=== PATIENT | female | born 1980 | race Caucasian/White ===

== ENCOUNTER 2018-10-20 13:28 | Emergency (ER) | payer BC ==
--- NOTE | 2018-10-20 13:58 | ER Document Report ---
ED Medical Screen (RME) - General Chief Complaint: Syncope Stated Complaint: SKIN PROBLEM Time Seen by Provider: 10/20/18 13:42 TRAVEL OUTSIDE OF THE [place] 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 She notes that she is concerned that there is scabies living in her skin for a long period of time. Also is concerned that this could represent some other unrecognized chronic infection. Has seen a jewel gauger. Has seen infectious disease provider. She notes a history of rectal bleeding over the last several days. I have seen and evaluated this patient in rapid medical screening exam fashion. I have initiated a evaluation and workup, this patient will require further investigation evaluation and disposition determination by secondary provider. - Vital Signs Vital signs: Temp Pulse Resp BP Pulse Ox 98.3 F 105 H 18 130/91 H 97 10/20/18 13:33 10/20/18 13:33 10/20/18 13:33 10/20/18 13:33 10/20/18 13:33
[2018-10-20 14:35] LABS: ABSOLUTE BASOPHILS # (AUTO) 0.1 10^3/uL (0.0-0.2); ABSOLUTE EOSINOPHILS # (AUTO) 0.2 10^3/uL (0.0-0.6); ABSOLUTE LYMPHOCYTES (AUTO) 1.9 10^3/uL (0.5-4.7); ABSOLUTE MONOCYTES (AUTO) 0.6 10^3/uL (0.1-1.4); ABSOLUTE NEUT (AUTO) 7.8 10^3/uL (1.7-8.2); BASOPHILS % (AUTO) 0.5 % (0-2); EOSINOPHILS % (AUTO) 2.1 % (0-6); HEMATOCRIT 45.1 % (36.0-47.0); HEMOGLOBIN 15.4 g/dL (12.0-15.5); LYMPHOCYTES % (AUTO) 18.1 % (13-45); MEAN CORPUSCULAR HEMOGLOBIN 29.9 pg (27.0-33.4); MEAN CORPUSCULAR HGB CONC 34.1 g/dL (32.0-36.0); MEAN CORPUSCULAR VOLUME 88 fl (80-97); MONOCYTES % (AUTO) 5.9 % (3-13); PLATELET COUNT 393 10^3/uL (150-450); RED BLOOD COUNT 5.15 10^6/uL (3.72-5.28); RED CELL DISTRIBUTION WIDTH 13.2 % (11.5-14.0); SEGMENTED NEUTROPHILS % (AUTO) 73.4 % (42-78); TOTAL CELLS COUNTED % (AUTO) 100 %; WHITE BLOOD COUNT 10.6 10^3/uL (4.0-10.5)
[2018-10-20 14:46] LABS: URINE AMPHETAMINES SCREEN NEGATIVE; URINE BARBITURATES SCREEN NEGATIVE; URINE BENZODIAZEPINES SCREEN UNCONFIRMED POSITIVE; URINE COCAINE SCREEN NEGATIVE; URINE MARIJUANA (THC) SCREEN NEGATIVE; URINE METHADONE SCREEN NEGATIVE; URINE PHENCYCLIDINE SCREEN NEGATIVE
[2018-10-20 14:47] LABS: APPEARANCE,URINE SLIGHTLY-CLOUDY; BILIRUBIN,URINE NEGATIVE (NEGATIVE); COLOR,URINE YELLOW; GLUCOSE, URINE NEGATIVE (NEGATIVE); KETONES,URINE NEGATIVE (NEGATIVE); LEUKOCYTE ESTERASE,URINE NEGATIVE (NEGATIVE); NITRITE,URINE NEGATIVE (NEGATIVE); PROTEIN,URINE NEGATIVE (NEGATIVE); URINE SPECIFIC GRAVITY 1.018; UROBILINOGEN,URINE NEGATIVE mg/dL (<2.0)
[2018-10-20 15:05] LABS: ALANINE AMINOTRANSFERASE 18 U/L (9-52); ALBUMIN 4.9 g/dL (3.5-5.0); ALKALINE PHOSPHATASE 66 U/L (38-126); ANION GAP 10 (5-19); ASPARTATE AMINO TRANSFERASE 22 U/L (14-36); BILIRUBIN,DIRECT 0.2 mg/dL (0.0-0.4); BILIRUBIN,TOTAL 0.4 mg/dL (0.2-1.3); BLOOD UREA NITROGEN 11 mg/dL (7-20); CALCIUM 9.8 mg/dL (8.4-10.2); CARBON DIOXIDE 28 mmol/L (22-30); CHLORIDE 100 mmol/L (98-107); GLUCOSE 99 mg/dL (75-110); POTASSIUM 4.4 mmol/L (3.6-5.0); SODIUM 137.7 mmol/L (137-145); TOTAL PROTEIN 7.7 g/dL (6.3-8.2)
--- NOTE | 2018-10-20 16:45 | ER Document Report ---
ED General - General Chief Complaint: Syncope Stated Complaint: SKIN PROBLEM Time Seen by Provider: 10/20/18 13:42 Notes: Patient is a 37-year-old female presents to the emergency department complaining of a generalized rash. Patient states she has had a generalized rash to "my entire body" for over a year. Patient states she has been to an oncologist, electrical controls technician, meter reader, choke reamer, infectious disease doctor for "all my issues." Patient states she did have melanoma the posterior aspect of her left leg removed multiple years ago. Patient states the rash that she has had has been the same for over the last year, states it has not changed at all. States the meter reader and the choke reamer gave her no medications for treatment. Patient states "I am just tired of being sick." patient does state for the last 2 days she has had intermittent rectal bleeding upon passing stool. States she has a history of anemia and is worried that she is losing too much blood. Past medical history: Anemia, melanoma Medications: Effexor, Adderall, iron, Singulair Allergies: Sulfa Surgical history: Tubal ligation Patient denies cigarette smoking, denies illicit drug use, denies EtOH use. Patient denies IV drug use in the past or currently. TRAVEL OUTSIDE OF THE [place] IN LAST 30 DAYS: No - Related Data Allergies/Adverse Reactions: Sulfa (Sulfonamide Antibiotics) Allergy (Verified 10/20/18 13:29) Past Medical History - General Information source: Patient - Social History Smoking Status: Never Smoker Frequency of alcohol use: None Drug Abuse: None Family History: Reviewed & Not Pertinent Patient has suicidal ideation: No Patient has homicidal ideation: No Renal/ Medical History: Denies: Hx Peritoneal Dialysis Past Surgical History: Reports: Hx Tubal Ligation Review of Systems - Review of Systems Constitutional: No symptoms reported EENT: No symptoms reported Cardiovascular: No symptoms reported Respiratory: No symptoms reported Gastrointestinal: See HPI Genitourinary: No symptoms reported Female Genitourinary: No symptoms reported Musculoskeletal: No symptoms reported Skin: See HPI Hematologic/Lymphatic: See HPI Neurological/Psychological: No symptoms reported Physical Exam - Vital signs Vitals: Temp Pulse Resp BP Pulse Ox 98.3 F 105 H 18 130/91 H 97 10/20/18 13:33 10/20/18 13:33 10/20/18 13:33 10/20/18 13:33 10/20/18 13:33 - Notes Notes: GENERAL: Alert, interacts well. No acute distress. HEAD: Normocephalic, atraumatic. EYES: Pupils equal, round, and reactive to light. Extraocular movements intact. ENT: Oral mucosa moist, tongue midline. NECK: Full range of motion. Supple. Trachea midline. LUNGS: Clear to auscultation bilaterally, no wheezes, rales, or rhonchi. No respiratory distress. HEART: Regular rate and rhythm. No murmur ABDOMEN: Soft, non-tender. Non-distended. Bowel sounds present in all 4 quadrants. EXTREMITIES: Moves all 4 extremities spontaneously. No edema, normal radial and dorsalis pedis pulses bilaterally. No cyanosis. BACK: no cervical, thoracic, lumbar midline tenderness. No saddle anesthesia, normal distal neurovascular exam. NEUROLOGICAL: Alert and oriented x3. Normal speech. cranial nerves II through XII grossly intact PSYCH: flat affect, depressed mood. SKIN: Warm, dry, normal turgor. Pinpoint linear erythematous raised lesions noted to the labs of bilateral fingers. what appears to be an excoriated abrasion is noted in between patient's eyebrows. Well-healed scar from a melanoma removal noted to the posterior aspect of the patient's left lower extremity. Otherwise skin exam is unremarkable. Course - Re-evaluation Re-evalutation: 10/20/18 16:45 Patient had labs ordered by the [employer] provider in triage. [facility]PR is only run on Mondays, Wednesdays, Fridays. Patient's labs show a white count of 10.6. Otherwise are unremarkable. No signs of anemia, no signs of any flexion, no signs of urinary tract infection. Patient's guaiac stool was positive at bedside although upon physical exam there were external hemorrhoids noted. No obvious bleeding or melena noted in stool appearance. 10/20/18 16:47 Patient's urine did show signs of benzodiazepines, patient continues to deny any illicit drug use besides prescription Adderall. - Vital Signs Vital signs: Temp Pulse Resp BP Pulse Ox 98.3 F 105 H 18 130/91 H 97 10/20/18 13:33 10/20/18 13:33 10/20/18 13:33 10/20/18 13:33 10/20/18 13:33 - Laboratory Result Diagrams: 10/20/18 14:05 10/20/18 14:05 Laboratory results interpreted by me: 10/20/18 10/20/18 14:05 14:05 WBC 10.6 H Urine Ascorbic Acid 40 H Discharge - Discharge Clinical Impression: Scabies Hemorrhoids Qualifiers: Hemorrhoid type: unspecified Qualified Code(s): K64.9 - Unspecified hemorrhoids Condition: Stable Disposition: HOME, SELF-CARE Instructions: Scabies ([facility]), Hemorrhoids ([facility]) Additional Instructions: As we discussed you have been seen and treated in the emergency department for a rash called scabies. Please use medication as prescribed. You have also been seen and treated for hemorrhoids. I have given you phone numbers for gastroenterology and surgery. Please follow-up with gastroenterology first and then surgery second. Should you continue with rectal bleeding, get lightheaded or weak, her of any other symptoms please return to the emergency room. Prescriptions: Permethrin [Acticin 5% Cream 60 gm] 2 applic TP DAILY #2 tube Referrals: HUE SANTILLAN MD [Primary Care Provider] - Follow up as needed DIGNA ZIMMER MD [ACTIVE STAFF] - Follow up as needed KARL PADGETT MD [ACTIVE STAFF] - Follow up as needed
[2018-10-20 17:04] VITALS: BP 130/90
== END 2018-10-20 17:00 | disposition home or self-care (01) ==
LOC: EDBD → ER 13:28
DX: B86 Scabies (principal); K64.4 Residual hemorrhoidal skin tags; K62.5 Hemorrhage of anus and rectum; D64.9 Anemia, unspecified; Z79.899 Other long term (current) drug therapy; Z88.2 Allergy status to sulfonamides; Z85.820 Personal history of malignant melanoma of skin
CPT/HCPCS: 36415; 80053; 80307; 81001; 81025; 85025; 86592; 86850; 86900; 86901; 87040; 99283